=== PATIENT | female | born 1980 | race Caucasian/White ===

== ENCOUNTER 2016-08-08 18:28 | Emergency (ER) | payer OTHER ==
[2016-08-08 18:32] VITALS: BP 119/72; BMI 25.0
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
== END 2016-08-08 19:42 | disposition home or self-care (01) ==
LOC: ER 18:28
DX: T25.022A Burn of unspecified degree of left foot, initial encounter (principal); X08.8XXA Exposure to other specified smoke, fire and flames, initial encounter
CPT/HCPCS: 99281; 99282

== ENCOUNTER → 2016-09-14 | Outpatient (CLI) | payer OTHER ==
--- NOTE | 2016-09-14 16:29 | RAD ---
HISTORY: Shortness of breath, left-sided rib pain Study: Two views of the check Comparison: March 09, 2016 Findings: The trachea is midline. The cardiac silhouette is unremarkable. The lungs are clear without focal infiltrate or effusion. IMPRESSION: 1. No acute cardiopulmonary disease. Reported By:
== END ==
LOC: RAD 15:48
PROVIDERS: ATTEND Internal Medicine
DX: R07.89 Other chest pain (principal); R06.02 Shortness of breath; R07.81 Pleurodynia
CPT/HCPCS: 71020